=== PATIENT | female | born 1940 | race Caucasian/White ===

== ENCOUNTER 2019-08-11 11:59 | Emergency (ER) | payer MEDICARE, BC ==
[~2019-08-11] VITALS: Ht 165.1 cm; Wt 59.1 kg
[2019-08-11 12:13] VITALS: Ht 165.1 cm; Wt 59.1 kg
[2019-08-11] MEDS ORDERED: CATAPRES TTS-10.1 MG (12:13)
[2019-08-11 15:17] LABS: ANION GAP 7.9 mmol/L (8-16); CALCIUM 9.4 mg/dL (8.5-10.1); CARBON DIOXIDE 32.6 mmol/L (21.0-32.0); CREATININE - SERUM 0.9 mg/dL (0.6-1.3); POTASSIUM - SERUM 3.5 mmol/L (3.5-5.1)
[2019-08-11 15:23] LABS: ALBUMIN 4.3 g/dL (3.4-5.0); BILIRUBIN - TOTAL 0.59 mg/dL (0.2-1.3)
[2019-08-11 15:48] LABS: BASOPHILS 0.2 % (0-2); EOSINOPHILS 1.2 % (0-7); HEMOGLOBIN 14.4 g/dL (12-16); IMMATURE GRANULOCYTES 0.4 % (0-5); LYMPHOCYTES 17.7 % (15-50); MCH 26.4 pg (26.0-34.0); MCV 82.4 fL (80.0-100.0); MEAN PLATELET VOLUME 9.7 fL (7.4-10.4); MONOCYTES 7.2 % (2-11); NEUTROPHILS 73.3 % (40-80); PLATELET COUNT 191 10x3/uL (130-400); RBC 5.46 10x6/uL (4.00-5.40); RDW 14.8 % (11.5-14.5); WBC 8.4 10x3/uL (4.8-10.8)
[2019-08-11] MEDS ORDERED: NORVASC10 MG PO (17:06)
[2019-08-11] MEDS ORDERED: CATAPRES TTS-10.1 MG TD (17:06)
[2019-08-11 17:46] VITALS: BP 160/100
== END 2019-08-11 17:48 | disposition home or self-care (01) ==
LOC: D.ER 11:59
PROVIDERS: Emergency Medicine
DX: T14.90XA Injury, unspecified, initial encounter (principal); W19.XXXA Unspecified fall, initial encounter